=== PATIENT | female | born 1950 | race Caucasian/White ===

== ENCOUNTER 2020-07-11 07:45 | Day surgery (SDC) | payer MEDICARE ==
[~2020-07-11] VITALS: Ht 157.5 cm; Wt 59.0 kg
[~2020-07-11 07:45] MED LIST: ALENDRONATE70 MG PO; AMLODIPINE2.5 MG PO; AMOXICILLIN500 MG PO; CALCIUM600 MG PO; FOSAMAX70 MG PO; HYDROCHLOROT12.5 MG PO; MULTI VIT PO; MULTIVITAM10 OR; MULTIVITAMI1 PO; OMEPRAZOLE DR40 MG PO; OMEPRAZOLE20 MG PO; OS-CAL 500500 M1 PO; PROLIA60 MG/ML SC; ULTRAM50 M1 PO; VITAMIN B 12100 MCG PO; VITAMIN B-12500 MCG PO; VITAMIN C500 M1 PO; VITAMIN C500 M5 PO; VITAMIN D1000 UNIT PO; VITAMIN D33000 UNIT PO; VITAMIN E400 UNIT PO; VITAMIN E600 UNIT PO; XANAX0.25 MG PO; ZYRTEC10 MG PO; [UNRECOGNIZED DRUG - SUPPLY] TOP
[2020-07-11 10:20] VITALS: BP 148/70
== END 2020-07-11 10:30 | disposition home or self-care (01) ==
LOC: ENDO 07:45 → ORM 10:00 → ENDO 10:30
PROVIDERS: ATTEND Surgery
PROC: 0DBH8ZX Excision of Cecum, Via Natural or Artificial Opening Endoscopic, Diagnostic (ICD-10-PCS; principal; 2020-07-11)
PROC: 0DB48ZX Excision of Esophagogastric Junction, Via Natural or Artificial Opening Endoscopic, Diagnostic (ICD-10-PCS; 2020-07-11)
PROC: 0DB68ZX Excision of Stomach, Via Natural or Artificial Opening Endoscopic, Diagnostic (ICD-10-PCS; 2020-07-11)
DX: Z12.11 Encounter for screening for malignant neoplasm of colon (principal); D17.5 Benign lipomatous neoplasm of intra-abdominal organs; K57.30 Diverticulosis of large intestine without perforation or abscess without bleeding; K64.8 Other hemorrhoids; K64.4 Residual hemorrhoidal skin tags; K21.0 Gastro-esophageal reflux disease with esophagitis; K29.50 Unspecified chronic gastritis without bleeding; K31.7 Polyp of stomach and duodenum; K44.9 Diaphragmatic hernia without obstruction or gangrene; I10 Essential (primary) hypertension; Z11.59 Encounter for screening for other viral diseases